=== PATIENT | female | born 1970 | race Caucasian/White ===

== ENCOUNTER 2017-10-29 16:20 | Emergency (ER) | payer OTHER ==
[2017-10-29 17:02] LABS: Absolute Lymphocytes (CBC) 2.6 K/uL (0.7-4.9); Absolute Monocytes 1.1 K/uL (0.1-1.3); Absolute Neutrophil 5.8 K/uL (1.8-8.0); Basophils % 0.6 % (0-1.3); Eosinophils % 0.8 % (0-4.4); Hematocrit 30.1 % (36.0-45.0); Lymphocytes % 26.7 % (15.3-44.8); MCH 23.5 pg (27.0-35.0); MCV 75.1 fL (80-100); MPV 8.8 fL (7.6-11.3); Monocytes % 11.5 % (3.3-12.3); RBC Red Blood Cell Count 4.01 M/uL (3.86-4.86)
[2017-10-29] MEDS ORDERED: MORPHINE 4 MG/ML SYR ONE (17:09)
[2017-10-29] MEDS ORDERED: ONDANSETRON 4 MG/2 ML VIAL ONE (17:09)
[2017-10-29] MEDS ORDERED: NA CHLORIDE 0.9% 1,000 ML ONE (17:09)
[2017-10-29 17:19] LABS: ALT/SGPT 10 U/L (12-78); AST/SGOT 18 U/L (15-37); Albumin 2.9 g/dL (3.4-5.0); Alkaline Phosphatase 94 U/L (45-117); Amylase Level 79 U/L (25-115); BUN Blood Urea Nitrogen 11 mg/dL (7-18); Bicarbonate 24 mmol/L (21-32); Bilirubin Direct 0.1 mg/dL (0-0.2); Bilirubin Total 0.4 mg/dL (0.2-1.0); Glucose Level 68 mg/dL (74-106); Lipase 170 U/L (73-393); Potassium 3.9 mmol/L (3.5-5.1); Sodium Level 141 mmol/L (136-145)
[2017-10-29 17:28] LABS: Urine Amorphous Sediment 1+ /HPF (NONE SEEN); Urine Bacteria 20-50 /HPF (<20); Urine Culture Reflex Order REFLEXED; Urine Mucus 2+ /HPF (NONE SEEN)
[2017-10-29 17:28] LABS: Urine Blood 2+ (NEG); Urine Glucose NEGATIVE (NEG); Urine Protein TRACE (NEG); Urine Specific Gravity 1.025 (1.005-1.030)
--- NOTE | 2017-10-29 18:42 | RAD REPORT ---
EXAM DESCRIPTION: CT - Stone Protocol - 10/29/2017 6:13 pm CLINICAL HISTORY: Abdominal pain. Right flank pain COMPARISON: 2009 TECHNIQUE: Computed axial tomography of the abdomen pelvis was obtained without oral or IV contrast. Lack of IV and oral contrast limits evaluation of solid organs, bowel, and vessels. Coronal reformat cornelius images were obtained and reviewed. All CT scans are performed using dose optimization technique as appropriate and may include automated exposure control or mA/KV adjustment according to patient size. FINDINGS: A renal calculus is not seen. An ureteral calculus is not noted. A bladder calculus is not present. The gallbladder has been removed The liver, spleen, pancreas and adrenals appear grossly normal There is no evidence of diverticulitis. An abnormal appendix is not seen. Postsurgical changes of a gastric bypass are noted. Small umbilical hernia is present. Small amount of free fluid is present in the pelvis. IMPRESSION: Negative for a genitourinary calculus
[2017-10-29 18:47] LABS: Urine Specific Gravity 1.025 (1.005-1.030)
--- NOTE | 2017-10-29 19:04 | EDPHYS ---
Physician Documentation [facility] Name: Lisa Sanabria Age: 47 yrs Sex: Female : 1970 Arrival Date: 10/29/2017 Time: 16:24 Bed 18 Private MD: Alex Barillas H ED Physician Felix Ross HPI: 10/29 16:46 This 47 yrs old Female presents to ER via Ambulatory with complaints of Flank jmm Pain. 16:46 The patient complains of pain in the right flank. The pain radiates to the abdomen. jmm Onset: The symptoms/episode began/occurred acutely, 1 day(s) ago. Modifying factors: The symptoms are alleviated by nothing. the symptoms are aggravated by nothing. This is a 47 year old female with no chronic medical conditions that presents to the ED with right flank pain beginning yesterday. The patient states that she has nausea but denies vomiting. Denies fever, denies diarrhea. Patient's surgical history includes cholecystectomy, , and gastric sleeve. . Historical: - Allergies: 16:27 No Known Allergies; sv - Home Meds: 16:27 Microgestin 05/17 (21) oral oral [Active]; Claritin Oral [Active]; sv - PSHx: 16:27 Cholecystectomy; ; Gastric Bypass; sv - Immunization history:: Adult Immunizations up to date. - Social history:: Smoking status: Patient/guardian denies using tobacco. - Ebola Screening: : No symptoms or risks identified at this time. ROS: 16:46 Constitutional: Negative for fever. jmm 16:46 Abdomen/GI: Positive for abdominal pain, nausea. 16:46 Back: Positive for flank pain, on the right. 16:46 All other systems are negative. Exam: 16:46 Head/Face: atraumatic. jmm 16:46 Constitutional: The patient appears in no acute distress, alert, awake. 16:46 Cardiovascular: Rate: normal, Rhythm: regular, Pulses: no pulse deficits are appreciated. 16:46 Respiratory: the patient does not display signs of respiratory distress, Respirations: normal, Breath sounds: are clear throughout. 16:46 Abdomen/GI: Inspection: obese Bowel sounds: normal, Palpation: soft, mild abdominal tenderness, in the right lower quadrant. 16:46 Back: ROM is normal. 16:46 Musculoskeletal/extremity: ROM: intact in all extremities. 16:46 Skin: Appearance: Color: normal in color. 16:46 Neuro: Orientation: is normal, Mentation: is normal, Memory: is normal. 16:46 Psych: Behavior/mood is pleasant, cooperative. Vital Signs: 16:27 BP 146 / 82; Pulse 55; Resp 18; Temp 98.2; Pulse Ox 100% ; Weight 108.86 kg; Height 5 sv ft. 7 in. (170.18 cm); Pain 10/10; 17:51 BP 123 / 80; Pulse 55; Resp 18; Pulse Ox 99% ; aj1 18:57 BP 120 / 69; Pulse 52; Resp 18; Pulse Ox 99% ; aj1 16:27 Body Mass Index 37.59 (108.86 kg, 170.18 cm) sv MDM: 16:45 Patient medically screened. [facility] 16:46 Data reviewed: vital signs, nurses notes. [facility] 19:02 Data reviewed: lab test result(s), radiologic studies, CT scan. Counseling: I had a [facility] detailed discussion with the patient and/or guardian regarding: the historical points, exam findings, and any diagnostic results supporting the discharge/admit diagnosis, the presence of at least one elevated blood pressure reading (>120/80) during this emergency department visit, lab results, radiology results, the need for outpatient follow up, to return to the emergency department if symptoms worsen or persist or if there are any questions or concerns that arise at home. Response to treatment: the patient's symptoms have markedly improved after treatment. 10/29 16:38 Order name: Urine Dipstick--Ancillary (enter results); Complete Time: 17:29 [facility] 10/29 16:46 Order name: Amylase, Serum; Complete Time: 17:22 [facility] 10/29 16:46 Order name: Basic Metabolic Panel; Complete Time: 17:22 [facility] 10/29 16:46 Order name: CBC with Diff; Complete Time: 17:22 [facility] 10/29 16:46 Order name: Creatinine for Radiology; Complete Time: 17:22 [facility] 10/29 16:46 Order name: Hepatic Function; Complete Time: 17:22 [facility] 10/29 16:46 Order name: Lipase; Complete Time: 17:22 [facility] 10/29 16:46 Order name: Urine Microscopic Only; Complete Time: 17:29 [facility] 10/29 16:59 Order name: CT Stone Protocol; Complete Time: 18:45 [facility] 10/29 17:30 Order name: Urine Culture [facility] 10/29 18:00 Order name: Urine --Ancillary (enter results); Complete Time: 19:01 [facility] 10/29 16:46 Order name: Urine Test (obtain specimen); Complete Time: 17:00 [facility] 10/29 16:46 Order name: IV Saline Lock; Complete Time: 16:57 [facility] 10/29 16:46 Order name: Labs collected and sent; Complete Time: 16:57 [facility] 10/29 16:46 Order name: Urine Dipstick-Ancillary (obtain specimen); Complete Time: 16:57 [facility] Administered Medications: 17:15 Drug: morphine 4 mg Route: IVP; Site: right antecubital; aj1 19:22 Follow up: Response: No adverse reaction ak1 17:15 Drug: NS 0.9% 1000 ml Route: IV; Rate: 1 bolus; Site: right antecubital; aj1 19:22 Follow up: IV Status: Completed infusion ak1 17:16 Drug: Zofran 4 mg Route: IVP; Site: right antecubital; aj1 19:22 Follow up: Response: No adverse reaction ak1 19:10 Drug: Ketorolac 30 mg Route: IVP; Site: right antecubital; ak1 19:22 Follow up: Response: No adverse reaction ak1 Disposition: 10/30 07:25 Co-signature as Attending Physician, Felix Ross MD. rn Disposition: 10/29/17 19:03 Discharged to Home. Impression: Urinary tract infection, site not specified, Right Flank Pain. - Condition is Stable. - Discharge Instructions: Urinary Tract Infection. - Prescriptions for Cephalexin 500 mg Oral Capsule - take 1 capsule by ORAL route every 12 hours for 10 days; 20 capsule. Tylenol- Codeine #3 300-30 mg Oral Tablet - take 1 tablet by ORAL route every 6 hours As needed; 12 tablet. Zofran 4 mg Oral Tablet - take 1 tablet by ORAL route every 12 hours As needed; 20 tablet. - Medication Reconciliation Form, Thank You Letter, Antibiotic Education, Prescription Opioid Use form. - Follow up: Alex Barillas DO; When: 2 - 3 days; Reason: Continuance of care. - Notes: Please follow up with your primary care provider in 1 to 2 days for reevaluation. Please return to the ED if you develop fever, worsening abdominal pain, vomiting, or any other concerning symptoms. Signatures: Dispatcher [employer] Parul Horner RN RN aj1 Nerissa Shipman RN RN sv Mickail, Joel, PA PA jmm Nieto, Roman, MD MD rn Krenek, Amber, RN RN ak1 Corrections: (The following items were deleted from the chart) 10/29 19:24 19:03 10/29/2017 19:03 Discharged to Home. Impression: Urinary tract infection, site ak1 not specified; Right Flank Pain. Condition is Stable. Forms are Medication Reconciliation Form, Thank You Letter, Antibiotic Education, Prescription Opioid Use. Follow up: Alex Barillas; When: 2 - 3 days; Reason: Continuance of care. clarissa
--- NOTE | 2017-10-29 19:04 | ER ---
Nurse's Notes [facility] Name: Lisa Sanabria Age: 47 yrs Sex: Female : 1970 Arrival Date: 10/29/2017 Time: 16:24 Bed 18 Private MD: Alex Barillas H Diagnosis: Urinary tract infection, site not specified;Right Flank Pain Presentation: 10/29 16:25 Presenting complaint: Patient states: right flank pain started yesterday. Denies sv urinary symptoms. Transition of care: patient was not received from another setting of care. Onset of symptoms was October 28, 2017. Care prior to arrival: None. 16:25 Method Of Arrival: Ambulatory sv 16:25 Acuity: LEATHA 3 sv 19:02 Risk Assessment: Do you want to hurt yourself or someone else? Patient reports no ak1 desire to harm self or others. Initial Sepsis Screen: Does the patient meet any 2 criteria? No. Patient's initial sepsis screen is negative. Does the patient have a suspected source of infection? No. Patient's initial sepsis screen is negative. Historical: - Allergies: 16:27 No Known Allergies; sv - Home Meds: 16:27 Microgestin 05/17 (21) oral oral [Active]; Claritin Oral [Active]; sv - PSHx: 16:27 Cholecystectomy; ; Gastric Bypass; sv - Immunization history:: Adult Immunizations up to date. - Social history:: Smoking status: Patient/guardian denies using tobacco. - Ebola Screening: : No symptoms or risks identified at this time. Screenin:50 Abuse screen: Denies threats or abuse. Denies injuries from another. Nutritional aj1 screening: No deficits noted. Tuberculosis screening: No symptoms or risk factors identified. 19:03 Fall Risk None identified. ak1 Assessment: 16:50 General: Appears in no apparent distress. uncomfortable, Behavior is calm, cooperative, aj1 appropriate for age. Pain: Complains of pain in posterior aspect of right lateral abdomen and anterior aspect of right lateral abdomen Pain does not radiate. Pain currently is 9 out of 10 on a pain scale. Quality of pain is described as Pt states she does not know how to describe the pain she is feeling Aggravated by repositioning. Neuro: Level of Consciousness is awake, alert, obeys commands, Oriented to person, place, time, situation, Speech is normal, Facial symmetry appears normal. Cardiovascular: Patient's skin is warm and dry. Respiratory: Airway is patent Respiratory effort is even, unlabored, Respiratory pattern is regular, symmetrical. GI: Reports nausea, Patient currently denies diarrhea, vomiting. : Denies burning with urination, discharge, urinary frequency, urgency. EENT: No signs and/or symptoms were reported regarding the EENT system. Derm: No signs and/or symptoms reported regarding the dermatologic system. Skin is pink, warm \T\ dry. normal. Musculoskeletal: No signs and/or symptoms reported regarding the musculoskeletal system. Circulation, motion, and sensation intact. 17:50 Reassessment: Patient appears in no apparent distress at this time. No changes from aj1 previously documented assessment. Patient and/or family updated on plan of care and expected duration. Pain level reassessed. Patient is alert, oriented x 3, equal unlabored respirations, skin warm/dry/pink. 18:57 Reassessment: Patient appears in no apparent distress at this time. No changes from aj1 previously documented assessment. Patient and/or family updated on plan of care and expected duration. Pain level reassessed. Patient is alert, oriented x 3, equal unlabored respirations, skin warm/dry/pink. Vital Signs: 16:27 BP 146 / 82; Pulse 55; Resp 18; Temp 98.2; Pulse Ox 100% ; Weight 108.86 kg; Height 5 sv ft. 7 in. (170.18 cm); Pain 10/10; 17:51 BP 123 / 80; Pulse 55; Resp 18; Pulse Ox 99% ; aj1 18:57 BP 120 / 69; Pulse 52; Resp 18; Pulse Ox 99% ; aj1 16:27 Body Mass Index 37.59 (108.86 kg, 170.18 cm) sv ED Course: 16:24 Patient arrived in ED. sb2 16:25 Alex Barillas DO is Private Physician. sb2 16:26 Triage completed. sv 16:26 Samy Munguia PA is PHCP. jmm 16:26 Felix Ross MD is Attending Physician. jmm 16:36 Urine collected: clean catch specimen, clear, Amount Voided: 250mL. jd2 16:37 Parul Dasilva RN is Primary Nurse. aj1 16:50 No provider procedures requiring assistance completed. aj1 16:50 Patient has correct armband on for positive identification. Bed in low position. Call aj1 light in reach. Side rails up X 1. 16:56 Inserted saline lock: 20 gauge in right antecubital area, using aseptic technique. jd2 Blood collected. 18:10 Patient moved to HI via wheelchair. nj 18:12 CT completed. Patient tolerated procedure well. Patient moved back from HI. nj 18:13 CT Stone Protocol In Process Unspecified. EDMS 19:03 Alex Barillas DO is Referral Physician. [facility] 19:03 Arm band placed on Patient placed in an exam room, on a stretcher, Patient notified of ak1 wait time. 19:23 IV discontinued, intact, bleeding controlled, No redness/swelling at site. Pressure ak1 dressing applied. Administered Medications: 17:15 Drug: morphine 4 mg Route: IVP; Site: right antecubital; aj1 19:22 Follow up: Response: No adverse reaction ak1 17:15 Drug: NS 0.9% 1000 ml Route: IV; Rate: 1 bolus; Site: right antecubital; aj1 19:22 Follow up: IV Status: Completed infusion ak1 17:16 Drug: Zofran 4 mg Route: IVP; Site: right antecubital; aj1 19:22 Follow up: Response: No adverse reaction ak1 19:10 Drug: Ketorolac 30 mg Route: IVP; Site: right antecubital; ak1 19:22 Follow up: Response: No adverse reaction ak1 Outcome: 19:03 Condition: stable ak1 19:03 Discharge ordered by . [facility] 19:23 Discharged to home ambulatory, with family. ak1 19:23 Discharge instructions given to patient, family, Instructed on discharge instructions, follow up and referral plans. no drinking with medication, no driving heavy equipment, medication usage, Demonstrated understanding of instructions, follow-up care, medications, Prescriptions given X 3. 19:24 Patient left the ED. ak1 Signatures: Dispatcher [employer] EDMS Parul Dasilva RN RN aj1 Nerissa Shipman RN RN sv Mickail, Joel, PA PA jmm Krenek, Amber, RN RN ak1 Joshua Robertson jd2 Thang Lerma Sheri sb2
[2017-10-29] MEDS ORDERED: KETOROLAC 30 MG/ML INJ ONE (19:18)
== END 2017-10-29 19:24 | disposition home or self-care (01) ==
LOC: ER 16:20
DX: N39.0 Urinary tract infection, site not specified (principal)
CPT/HCPCS: 36415; 74176; 76377; 80048; 80076; 81003; 81015; 81025; 82150; 83690; 85025; 87086; 87088; 96361; 96374; 96375; 99284; J2405; J7030

== ENCOUNTER 2021-09-10 19:11 | Emergency (ER) | payer OTHER ==
--- OUTSIDE RECORDS SUMMARY | 2021-09-10 19:14 | XMS REPORT | Continuity of Care Document ---
:1970 Author Organization [facility] t Address [address] [place] [address] Care Team Providers Name Role Phone WATERS_S Attending Clinician Unavailable BRYANNA_S Admitting Clinician Unavailable Payers Payer Name Policy Type Policy Number Effective Date Expiration Date S ource Problems This patient has no known problems. Allergies, Adverse Reactions, Alerts This patient has no known allergies or adverse reactions. Medications This patient has no known medications. Procedures This patient has no known procedures. Encounters Start End Encounter Admission Attending Care Care Encounter Source Date/Time Date/Time Type Type Clinicians Facility Department ID 2020-07-19 2020-07-19 Outpatient BRYANNA_S [facility] [id number] [place] 12:05:00 12:05:00 [facility] Results This patient has no known results.
--- NOTE | 2021-09-10 19:56 | ER ---
Nurse's Notes [facility] Name: Lisa Sanabria Age: 51 yrs Sex: Female : 1970 Arrival Date: 09/10/2021 Time: 19:14 Bed Waiting Private MD: Diagnosis: Presentation: 09/10 19:51 Chief complaint:. ld1 ED Course: 19:14 Patient arrived in ED. [email or web address] Administered Medications: No medications were administered Outcome: 19:55 Patient left the ED. ld1 Signatures: Petra Hannah RN RN ld1 Sylvia Staley
== END 2021-09-10 19:55 | disposition left against medical advice (07) ==
LOC: ER 19:11
DX: Z02.89 Encounter for other administrative examinations (principal)
CPT/HCPCS: 99281